=== PATIENT | female | born 1955 | race Caucasian/White ===

== ENCOUNTER → 2016-12-01 | Outpatient (CLI) | payer MEDICARE, OTHER | END | disposition home or self-care (01) | LOC: PCVCCLINIC 12:12 | PROVIDERS: ATTEND Internal Medicine Cardiovascular Disease | DX: I10 Essential (primary) hypertension (principal); M02.30 Reiter's disease, unspecified site; I67.83 Posterior reversible encephalopathy syndrome; G89.4 Chronic pain syndrome; D53.8 Other specified nutritional anemias; R00.0 Tachycardia, unspecified; K21.9 Gastro-esophageal reflux disease without esophagitis; M19.90 Unspecified osteoarthritis, unspecified site; M81.0 Age-related osteoporosis without current pathological fracture; Z87.440 Personal history of urinary (tract) infections; Z90.49 Acquired absence of other specified parts of digestive tract; Z98.51 Tubal ligation status; Z79.899 Other long term (current) drug therapy; Z82.49 Family history of ischemic heart disease and other diseases of the circulatory system; Z88.1 Allergy status to other antibiotic agents; Z91.048 Other nonmedicinal substance allergy status | CPT/HCPCS: 80061; 93005; G0463 ==

== ENCOUNTER → 2016-12-09 | Outpatient (CLI) | payer MEDICARE, OTHER ==
[~2016-12-09] MED LIST: REGADENOSON 0.4 MG/5 ML DISP.SYRIN. IV ONE
--- NOTE | 2016-12-09 13:59 | PCVCIMAG ---
APPROVED REPORT Study performed: 12/09/2016 08:44:50 EXAM: Comprehensive 2D, Doppler, and color-flow Echocardiogram Patient Location: Echo lab Status: routine BSA: 1.58 HR: 84 bpmBP: 144/82 mmHg Rhythm: NSR Other Information Study Quality: Good Risk Factors: Cardiac Risk Factors: HTN, FHX of CAD Indications Syncope Fatigue Chest Pain Hypertension/HDD 2D Dimensions LVEF(%): 43.85 (>50%) IVSd: 9.50 (7-11mm)LVOT Diam: 19.60 (18-24mm) LVDd: 40.76 mm PWd: 10.58 (7-11mm)Ascending Ao: 29.72 (22-36mm) LVDs: 32.04 (25-40mm) Left Atrium: 31.81 (27-40mm) Aortic Root: 23.42 mm LV Single Plane 4CH: 51.89 % LV Single Plane 2CH: 50.97 %[place] LVEF: 51.43 % Biplane EF: 51.3 % Volumes Left Atrial Volume (Systole) Single Plane 4CH: 21.58 mLSingle Plane 2CH: 25.94 mL Biplane LA Volume: 24.00 mLLA ESV Index: 15.00 mL/m2 Aortic Valve AoV Peak Saad.: 1.15 m/s AO Peak Gr.: 5.33 mmHgLVOT Max P.81 mmHg LVOT Max V: 0.84 m/s [place] Vmax: 2.19 cm2 AI Vmax: 4.20 m/s AI [place]: 2.09 m/s2 AI PHT: 584.54 ms Mitral Valve E/A Ratio: 0.7 MV Decel. Time: 169.98 ms MV E Max Saad.: 0.35 m/s MV A Saad.: 0.53 m/s TDI E/Lateral E': 8.75E/Medial E': 7.00 Medial E' Saad.: 0.05 m/s Lateral E' Saad.: 0.04 m/s Pulmonary Valve PV Peak Saad.: 0.71 m/sPV Peak Gr.: 2.04 mmHg Pulmonary Vein P Vein S: 0.64 m/sP Vein A: 0.34 m/s P Vein D: 0.46 m/sP Vein A Dur.: 65.7 msec P Vein S/D Ratio: 1.39 Tricuspid Valve TR Peak Saad.: 2.12 m/s TR Peak Gr.: 17.99 mmHg TV Vmax: 0.62 m/sPA Pressure: 25.00 mmHg Left Ventricle The left ventricle is normal size. There is normal LV segmental wall motion. Mild concentric left ventricular hypertrophy. Left ventricular systolic function is normal. The left ventricular ejection fraction is within the normal range. LVEF is 55-60%. Grade I - abnormal relaxation pattern. Right Ventricle The right ventricle is normal size. The right ventricular systolic function is normal. Atria The left atrium size is normal. The right atrium size is normal. Aortic Valve The aortic valve is normal in structure. Mild aortic regurgitation. There is no aortic valvular stenosis. Mitral Valve Mild posterior valve leaflet prolapse with minimal regurgitatiion: otherwise normally functioning valve. Trace to mild mitral regurgitation. No evidence of mitral valve stenosis. Tricuspid Valve The tricuspid valve is normal in structure. Trace tricuspid regurgitation. Pulmonic Valve The pulmonary valve is normal in structure. Trace to mild pulmonic regurgitation. Great Vessels The aortic root is normal in size. The ascending aorta is normal in size. IVC is normal in size and collapses with >50% inspiration Pericardium There is no pericardial effusion. There is no pleural effusion. <Conclusion> The left ventricle is normal size. Mild concentric left ventricular hypertrophy. LVEF is 55-60%. Grade I - abnormal relaxation pattern. The right ventricle is normal size. The left atrium size is normal. Mild aortic regurgitation. Mild posterior valve leaflet prolapse with minimal regurgitatiion: otherwise normally functioning valve. Trace tricuspid regurgitation. There is no pericardial effusion.
--- NOTE | 2016-12-09 16:19 | PCVCIMAG ---
APPROVED REPORT Exam: Nuclear Stress Test Indication: Chest Pain, Profound Fatigue Patient Location: Out-Patient Stress Nurse: Mary Ellen Red RN, Misa Baer RN [place] Tech:Jason Kohli NMTCB Ht: 5 ft 5 in Wt: 118 lbs BSA: 1.58 m2 HR: 81 bpm BP: 146/78 mmHg BMI: 19.6 Rhythm: NSR Medical History Medical History: Age, Reiters Syndrome, PRESS Syndrome, Fibromyalgia Medications: Lopressor (held 24 hours) Xanax Allergies: Promethazine, EES, Tape Pretest Chest Pain Characteristics: No chest pain NM EXAM: Myocardial Perfusion REST/STRESS Imaging Protocol: Rest Tc-99m/Stress Tc-99m 1 day Resting Data Rest SPECT myocardial perfusion imaging was performed in supine position 45 minutes following the intravenous injection of 8.8 mCi of Tc-99m Sestamibi. Time of rest injection: 0850 Date: 12/09/2016 Pharmacologic Stress Pharmacologic stress test was performed by injecting Regadenoson 0.4 mg IV push followed by the intravenous injection of 27.4 mCi of Tc-99m Sestamibi. Time of stress injection: 1015 Date: 12/09/2016 The images were gated to evaluate regional wall motion and calculate left ventricular ejection fraction. Study Quality Study: Good Study Data Post stress, the left ventricular ejection was 68%.. SSS: 0 SRS: 0 SDS: 0 TID = 0.86. Perfusion No evidence of stress induced ischemia or prior myocardial infarction. Wall Motion Normal left ventricular size and function with no regional wall motion abnormalities. Nuclear Conclusion No evidence of stress induced ischemia or prior myocardial infarction. Normal left ventricular size and function with no regional wall motion abnormalities. Post stress, the left ventricular ejection was 68%.. No prior study available for comparison. Interpreted by: Fredrick Mclean MD Electronically Approved: 12/09/2016 14:49:51 Stress Test Details Stress Test: Pharmacologic stress testing performed using 0.4 mg of regadenoson per 5 mL given IV over 10 seconds. Reason for pharmacologic stress test: physical limitation. HR Resting HR: 81 bpmMax Heart Rate (APMHR): 157 bpm Max HR Achieved: 110 bpmTarget HR (85% APMHR): 133 bpm % of APMHR: 70 Recovery HR: 94 bpm BP Resting BP: 146/78 mmHg Max BP: 126/58 mmHg ECG Resting ECG: Sinus Rhythm Stress ECG: Sinus Tachycardia Arrhythmia: None Recovery ECG: Sinus Rhythm Clinical Reason for Termination: Completed protocol Stress Symptoms: Fatigue Exercise duration: min 55 sec Exercise capacity: 1.0 METs Symptoms resolved during recovery. Stress ECG Conclusion ECG: Non-ischemic <Conclusion> ECG: Non-ischemic
== END | disposition home or self-care (01) ==
LOC: PCVCIMAG 08:42
PROVIDERS: ATTEND Internal Medicine Cardiovascular Disease
DX: I08.3 Combined rheumatic disorders of mitral, aortic and tricuspid valves (principal); I10 Essential (primary) hypertension; I25.10 Atherosclerotic heart disease of native coronary artery without angina pectoris; M79.7 Fibromyalgia; M02.30 Reiter's disease, unspecified site; I67.83 Posterior reversible encephalopathy syndrome; K21.9 Gastro-esophageal reflux disease without esophagitis; M19.90 Unspecified osteoarthritis, unspecified site; M81.0 Age-related osteoporosis without current pathological fracture; Z82.49 Family history of ischemic heart disease and other diseases of the circulatory system
CPT/HCPCS: 78452; 93017; 93306; A9500; J2785

== ENCOUNTER → 2017-06-02 | Outpatient (CLI) | payer MEDICARE, OTHER | END | disposition home or self-care (01) | LOC: PCVCCLINIC 14:50 | DX: I10 Essential (primary) hypertension (principal); K21.9 Gastro-esophageal reflux disease without esophagitis; R00.0 Tachycardia, unspecified; C92.00 Acute myeloblastic leukemia, not having achieved remission; Z82.49 Family history of ischemic heart disease and other diseases of the circulatory system; Z79.899 Other long term (current) drug therapy | CPT/HCPCS: 80061; 93005; G0463 ==